=== PATIENT | female | born 1955 | race Caucasian/White ===

== ENCOUNTER 2019-08-30 08:52 | Outpatient (CLI) | payer MEDICARE, BC ==
--- NOTE | 2019-08-30 09:32 | CT ---
HEAD CT WITHOUT CONTRAST: HISTORY: AVM follow-up from 2006. Patient has a SURVEY DIRECTOR shunt. COMPARISON: None. FINDINGS: Hemorrhage: No intraparenchymal hemorrhage or extra-axial hematoma. Brain parenchyma: Encephalomalacia and gliosis in the left frontal lobe, likely due to remote insult. Multiple hyperdensities along the left frontal region compatible with glue and vascular clip.Hypoattenuation of the left frontal deep and subcortical white matter compatible with gliosis. M inimal chronic small vessel ischemic changes of the white matter. Ventricular system: Ventriculoperitoneal shunt catheter via the right parietal approach. Distal tip i s in the frontal horn of the right lateral ventricle. No evidence of hydrocephalus. Calvarium: Postsurgical changes in the left frontal calvarium. Nonspecific sclerosis involving the ri ght frontal calvarium, measuring 1.1 x 1.1 cm. [place] hole defect along the right parietal calvarium for SURVEY DIRECTOR shunt catheter. Sclerosis along the inner and outer table the left temporal calvarium. Sinuses and mastoid air cells: Adequate aeration. IMPRESSION: Iatrogenic changes as described above. No acute intracranial process. Transcribed Date/Time: 08/30/2019 9:38 AM
== END 2019-08-30 08:53 | disposition home or self-care (01) ==
LOC: SCSCT 08:52
PROVIDERS: ATTEND Physician Assistant Surgical
DX: G91.9 Hydrocephalus, unspecified (principal); Q27.30 Arteriovenous malformation, site unspecified
CPT/HCPCS: 70450

== ENCOUNTER 2021-06-21 01:25 | Inpatient (IN) | payer OTHER, MEDICARE, BC ==
[2021-06-21] MEDS ORDERED: Dextrose 50% Abboject 50 ML SYRINGE SLOW IVP PRN (01:26)
[2021-06-21] MEDS ORDERED: Ondansetron PF 4 MG/2 ML Vial IVP PRN (01:26)
[2021-06-21] MEDS ORDERED: hydrALAZINE 20 MG/ML VIAL SLOW IVP PRN (01:26)
[2021-06-21] MEDS ORDERED: Dextrose 5% in Water 1,000 ML IV PRN (01:26)
[2021-06-21] MEDS ORDERED: Ondansetron ODT 4 MG TAB PO PRN (01:26)
[2021-06-21 01:32] VITALS: BMI 34.7
[2021-06-21] MEDS ORDERED: Cyclobenzaprine 10 MG TAB PO PRN (01:33)
[2021-06-21] MEDS ORDERED: traMADol HCl 50 MG TAB PO PRN ×2 (01:33)
[2021-06-21] MEDS ORDERED: Morphine 4 MG/ML VIAL SLOW IVP PRN (02:24)
[2021-06-21] MEDS: Acetaminophen 325 MG TAB PO SCH ×4 (02:38→21:11)
[2021-06-21] MEDS: Sodium Chloride 0.9% 1,000 ML IV SCH ×2 (02:40→09:32)
[2021-06-21] MEDS: Ibuprofen 200 MG TAB PO SCH ×3 (02:55→18:25)
[2021-06-21 04:22] LABS: SARS-CoV-2 NAA Rapid Test Not Detected (NotDetected)
[2021-06-21 05:58] LABS: #Lymphocytes 1.2 thou/uL (1.20-3.40); #Monocytes 0.9 thou/uL (0.11-0.59); #Neutrophils 9.2 thou/uL (1.40-6.50); %Basophils 0.1 % (0.0-1.0); %Eosinophils 0.3 % (0.0-10.0); %Lymphocytes 10.6 % (21.0-51.0); %Monocytes 7.5 % (0.0-10.0); %Neutrophils 81.6 % (42.0-75.0); Hemoglobin 13.3 g/dL (12.0-16.0); Mean Corpuscular HGB CONC 34.6 g/dL (32.0-36.0); Mean Corpuscular Hemoglobin 31.3 pg (27.0-31.0); Mean Corpuscular Volume 90.4 fL (78.0-98.0); Mean Platelet Volume 6.4 fL (7.4-10.4); Platelet Count 360 thou/uL (130-400); Red Blood Cell (RBC) Count 4.26 mill/uL (4.20-5.40); White Blood Cell (WBC) Count 11.3 thou/uL (4.8-10.8)
[2021-06-21 06:20] LABS: Anion Gap 11 mmol/L (10-20); BUN (Urea Nitrogen) 12 mg/dL (9.8-20.1); Calc. Creatinine Clearance 112 mL/min (70-130); Calcium 9.5 mg/dL (7.8-10.44); Carbon Dioxide 30 mmol/L (23-31); Chloride 93 mmol/L (98-107); Glucose 109 mg/dL (80-115); Magnesium 1.9 mg/dL (1.6-2.6); Phosphorus 4.3 mg/dL (2.3-4.7); Potassium 4.4 mmol/L (3.5-5.1); Sodium 130 mmol/L (136-145)
[2021-06-21] MEDS ORDERED: FLU VACC QS2021-22(65YR UP)/PF 240 MCG/0.7 ML SYRINGE IM ONE (09:00)
[2021-06-21] MEDS ORDERED: Bisoprolol Fumarate/HCTZ 5 mg/6.25 mg Tablet PO SCH (09:00)
[2021-06-21] MEDS ORDERED: Lisinopril 10 MG TAB PO SCH (09:00)
[2021-06-21] MEDS ORDERED: Famotidine 20 MG TAB PO SCH (09:00)
[2021-06-21] MEDS: Lisinopril 10 MG TAB PO SCH (09:27)
[2021-06-21] MEDS ORDERED: CEFAZOLIN 2 GM in Premix Bag 1 BAG IVPB SCH (10:15)
[2021-06-21] MEDS ORDERED: CEFAZOLIN 2 GM in Sodium Chloride 0.9% 100 ML IVPB SCH (10:15)
[2021-06-21] MEDS: Bisoprolol Fumarate/HCTZ 5 mg/6.25 mg Tablet PO SCH (10:53)
[2021-06-21] MEDS ORDERED: ceFAZolin Sodium (SDC) 2 GM/100 ML BAG ONE (17:20)
[2021-06-21] MEDS ORDERED: Fentanyl 100 MCG/2 ML VIAL ONE ×2 (18:01→19:01)
[2021-06-21] MEDS ORDERED: PROPOFOL 200 MG/20 ML VIAL ONE (18:27)
[2021-06-21] MEDS ORDERED: Glycopyrrolate 0.2 MG/ML 5 ML SYRINGE ONE (18:27)
[2021-06-21] MEDS ORDERED: Dexamethasone 20 MG/5 ML VIAL ONE (18:27)
[2021-06-21] MEDS ORDERED: Ketorolac Tromethamine 30 MG/ML VIAL ONE (18:27)
[2021-06-21] MEDS ORDERED: Rocuronium Bromide 10 MG/ML (10ML VIAL) ONE (18:27)
[2021-06-21] MEDS ORDERED: Lidocaine 1% PF 5 ML VIAL ONE (18:27)
[2021-06-21] MEDS ORDERED: Ondansetron PF 4 MG/2 ML Vial ONE (18:27)
[2021-06-21] MEDS ORDERED: Ondansetron HCl/PF 4 MG/2 ML Vial IVP PRN (19:54)
[2021-06-21] MEDS ORDERED: Promethazine HCl 25 MG/ML VIAL IVPB PRN (19:54)
[2021-06-21] MEDS ORDERED: Promethazine HCl 25 MG/ML VIAL IM PRN (19:54)
[2021-06-21] MEDS ORDERED: Meperidine HCl/PF 25 MG/ML VIAL SLOW IVP PRN (19:54)
[2021-06-21] MEDS ORDERED: Fenofibrate Nanocrystallized 145 MG TAB PO SCH (21:00)
[2021-06-21] MEDS ORDERED: Non-Formulary Item 1 EACH (Fenofibrate [Lipofen] 150 MG Capsule) PO SCH (21:00)
[2021-06-21] MEDS ORDERED: Atorvastatin Calcium 10 MG TAB PO SCH (21:00)
[2021-06-22] MEDS: Acetaminophen 325 MG TAB PO SCH ×3 (02:20→16:26)
[2021-06-22] MEDS: CEFAZOLIN 2 GM in Sodium Chloride 0.9% 100 ML IVPB SCH ×2 (02:20→09:26)
[2021-06-22] MEDS: Ibuprofen 200 MG TAB PO SCH ×2 (02:21→11:37)
[2021-06-22 04:56] LABS: #Lymphocytes 0.4 thou/uL (1.20-3.40); #Monocytes 0.8 thou/uL (0.11-0.59); #Neutrophils 12.7 thou/uL (1.40-6.50); %Eosinophils 0.1 % (0.0-10.0); %Lymphocytes 3.1 % (21.0-51.0); %Monocytes 5.9 % (0.0-10.0); Hemoglobin 11.7 g/dL (12.0-16.0); Mean Corpuscular Hemoglobin 30.6 pg (27.0-31.0); Mean Corpuscular Volume 92.6 fL (78.0-98.0); Mean Platelet Volume 6.8 fL (7.4-10.4); Platelet Count 325 thou/uL (130-400); RBC Distribution Width 12.1 % (11.5-14.5); Red Blood Cell (RBC) Count 3.84 mill/uL (4.20-5.40)
[2021-06-22 05:27] LABS: Anion Gap 11 mmol/L (10-20); BUN (Urea Nitrogen) 12 mg/dL (9.8-20.1); Calc. Creatinine Clearance 111 mL/min (70-130); Calcium 8.9 mg/dL (7.8-10.44); Carbon Dioxide 27 mmol/L (23-31); Chloride 99 mmol/L (98-107); Glucose 128 mg/dL (80-115); Magnesium 1.8 mg/dL (1.6-2.6); Phosphorus 3.3 mg/dL (2.3-4.7); Potassium 4.5 mmol/L (3.5-5.1); Sodium 132 mmol/L (136-145)
[2021-06-22] MEDS ORDERED: PHOS-NAK 1 PKT PACK PO SCH (08:00)
[2021-06-22] MEDS ORDERED: Magnesium 2 GM/50 ML 2 GM in Premix Bag 1 BAG IVPB SCH (08:00)
[2021-06-22] MEDS: Lisinopril 10 MG TAB PO SCH (08:39)
[2021-06-22] MEDS: Bisoprolol Fumarate/HCTZ 5 mg/6.25 mg Tablet PO SCH (08:41)
[2021-06-22] MEDS ORDERED: Aspirin 81 mg Enteric Coated Tablet PO SCH (09:00)
[2021-06-22 16:19] VITALS: BP 119/73; TEMP 98
== END 2021-06-22 19:45 | DRG 522 ==
LOC: SJJU 01:25
PROVIDERS: ADMIT Specialist; ATTEND Surgery
PROC: 0SRR0JA Replacement of Right Hip Joint, Femoral Surface with Synthetic Substitute, Uncemented, Open Approach (ICD-10-PCS; principal; 2021-06-21)
DX: S72.111A Displaced fracture of greater trochanter of right femur, initial encounter for closed fracture (principal); E87.1 Hypo-osmolality and hyponatremia; Z20.822 Contact with and (suspected) exposure to COVID-19; E78.5 Hyperlipidemia, unspecified; E87.8 Other disorders of electrolyte and fluid balance, not elsewhere classified; I10 Essential (primary) hypertension; W01.0XXA Fall on same level from slipping, tripping and stumbling without subsequent striking against object, initial encounter; Y92.009 Unspecified place in unspecified non-institutional (private) residence as the place of occurrence of the external cause; Z88.1 Allergy status to other antibiotic agents; Z88.2 Allergy status to sulfonamides; Z79.899 Other long term (current) drug therapy; Z90.49 Acquired absence of other specified parts of digestive tract
CPT/HCPCS: 36415; 72170; 80048; 83735; 84100; 85025; C1776; J0690; J1100; J1885; J2270; J2405; J2704; J3010; J3475; J3490; J7050; U0002

== ENCOUNTER 2024-01-30 10:36 | Outpatient (CLI) | payer MEDICARE | END 2024-01-30 10:37 | disposition home or self-care (01) | LOC: SCSCT 10:36 | PROVIDERS: ATTEND Family Medicine | DX: R10.9 Unspecified abdominal pain (principal); K43.9 Ventral hernia without obstruction or gangrene; K46.9 Unspecified abdominal hernia without obstruction or gangrene; M47.9 Spondylosis, unspecified; N28.89 Other specified disorders of kidney and ureter | CPT/HCPCS: 74176 ==

== ENCOUNTER 2025-03-27 15:41 | Outpatient (CLI) | payer MEDICARE | END 2025-03-27 15:42 | disposition home or self-care (01) | LOC: SCSRAD 15:41 | PROVIDERS: ATTEND Student in an Organized Health Care Education/Training Program | DX: M79.641 Pain in right hand (principal); S62.304A Unspecified fracture of fourth metacarpal bone, right hand, initial encounter for closed fracture; Z87.81 Personal history of (healed) traumatic fracture ==

== ENCOUNTER 2025-07-16 15:02 | Inpatient (IN) | payer MEDICARE ==
[2025-07-16 17:31] LABS: #Basophils Less than 0.03 10x3/uL (0.0-0.2); #Eosinophils Less than 0.03 10x3/uL (0.0-0.7); #Monocytes 0.82 10x3/uL (0.11-0.59); #Neutrophils 9.41 10x3/uL (1.40-6.50); %Basophils 0.1 % (0.0-1.0); %Eosinophils 0.1 % (0.0-10.0); %Lymphocytes 5.1 % (21.0-51.0); %Monocytes 7.5 % (0.0-10.0); %Neutrophils 86.6 % (42.0-75.0); Hematocrit 34.2 % (36.0-47.0); Hemoglobin 11.9 g/dL (12.0-16.0); Mean Corpuscular Hemoglobin 27.9 pg (27.0-31.0); Mean Corpuscular Volume 80.1 fL (78.0-98.0); Platelet Count 351 10x3/uL (130-400); Red Blood Cell (RBC) Count 4.27 mill/uL (4.20-5.40); White Blood Cell (WBC) Count 10.87 10x3/uL (4.8-10.8)
[2025-07-16 17:49] LABS: INR-International Normal Ratio 1.4; Prothrombin Time 17.0 sec (12.0-14.7)
[2025-07-16 17:50] LABS: PTT 29.8 sec (22.9-36.1)
[2025-07-16 18:08] LABS: ALT (SGPT) 27 U/L (Less than 34); AST (SGOT) 46 U/L (11-34); Albumin 3.6 g/dL (3.1-4.5); Alkaline Phosphatase 41 U/L (40-110); Anion Gap 15 mmol/L (10-20); BUN (Urea Nitrogen) 33 mg/dL (9.8-20.1); Bilirubin, Total 1.2 mg/dL (0.3-1.2); Calc. Creatinine Clearance 0 mL/min (70-130); Calcium 9.5 mg/dL (7.8-10.44); Carbon Dioxide 24 mmol/L (23-31); Chloride 79 mmol/L (98-107); Globulin 2.5 g/dL (2.4-3.5); Glucose 117 mg/dL (80-115); Potassium 4.6 mmol/L (3.5-5.1); Sodium 113 mmol/L (136-145)
[2025-07-16] MEDS ORDERED: Furosemide 40 MG (4 mL) VIAL ONE (18:38)
[2025-07-16 19:32] LABS: Osmolality, Serum 242 mOsm/kg (280-301)
[2025-07-16] MEDS ORDERED: Calcium Carbonate 500 MG ChewTAB PO PRN (19:35)
[2025-07-16] MEDS ORDERED: Guaifenesin DM 100-10/5 ML UDCUP PO PRN (19:35)
[2025-07-16 20:46] LABS: Bacteria/HPF 4+ HPF (None Seen); CAUTI Indications for Culture Alt mental st,lethar; Glucose, Urine (Dipstick) Normal (Negative); Leukocyte 500 Leu/uL (Negative); Protein, Urine (Dipstick) 10 mg/dL (Neg-Trace); RBC/HPF 0-3 HPF (0-3); Specific Gravity, Urine 1.015 (1.002-1.036)
[2025-07-16 20:59] LABS: Osmolality, Urine 426 mOsm/kg (50-1200)
[2025-07-16 21:09] LABS: Urine Culture Reflex No No
[2025-07-16 21:21] VITALS: BMI 36.7
[2025-07-16 21:45] LABS: Sodium, Urine 37.0 mmol/L (Not Available)
[2025-07-16] MEDS: cefTRIAXone\\ROCEPHIN 1 GM in Sodium Chloride 0.9% 100 ML IVPB SCH (21:54)
[2025-07-16] MEDS: Aspirin 81 mg Enteric Coated Tablet PO SCH (21:54)
[2025-07-16 22:59] LABS: Sodium 112 mmol/L (136-145)
[2025-07-17 00:11] LABS: Actual Bicarbonate (HCO3v) 21.0 mEq/L (22-28); Base Excess -1.7 mEq/L (-2.0 to +3.0); Calcium, Ionized (venous) 1.03 mmol/L (1.16-1.32); Chloride (VBG) 79 mmol/L (98-106); Hematocrit-VBG 40 % (36.0-47.0); Hemoglobin (Hb) 13.5 g/dL (11.7-16.1); Potassium (VBG) 4.46 mmol/L (3.70-5.30)
[2025-07-17 00:14] LABS: Sodium 111 mmol/L (133-146)
[2025-07-17 04:55] LABS: #Basophils Less than 0.03 10x3/uL (0.0-0.2); #Eosinophils Less than 0.03 10x3/uL (0.0-0.7); #Monocytes 1.26 10x3/uL (0.11-0.59); #Neutrophils 9.16 10x3/uL (1.40-6.50); %Basophils 0.1 % (0.0-1.0); %Eosinophils 0.0 % (0.0-10.0); %Lymphocytes 5.2 % (21.0-51.0); %Monocytes 11.4 % (0.0-10.0); %Neutrophils 82.8 % (42.0-75.0); Hematocrit 33.4 % (36.0-47.0); Hemoglobin 11.9 g/dL (12.0-16.0); Mean Corpuscular Hemoglobin 28.1 pg (27.0-31.0); Mean Corpuscular Volume 79.0 fL (78.0-98.0); Platelet Count 348 10x3/uL (130-400); Red Blood Cell (RBC) Count 4.23 mill/uL (4.20-5.40); White Blood Cell (WBC) Count 11.05 10x3/uL (4.8-10.8)
[2025-07-17] MEDS: Furosemide 40 MG (4 mL) VIAL SLOW IVP SCH (05:14)
[2025-07-17 05:27] LABS: Anion Gap 15 mmol/L (10-20); BUN (Urea Nitrogen) 34 mg/dL (9.8-20.1); Calc. Creatinine Clearance 62 mL/min (70-130); Carbon Dioxide 22 mmol/L (23-31); Chloride 79 mmol/L (98-107); Potassium 4.0 mmol/L (3.5-5.1); Sodium 112 mmol/L (136-145)
[2025-07-17 05:28] LABS: Calcium 9.3 mg/dL (7.8-10.44); Glucose 106 mg/dL (80-115)
[2025-07-17] MEDS: Sodium Chloride 256 MEQ in Sterile Water 936 ML IV SCH (08:13)
[2025-07-17 08:17] LABS: Actual Bicarbonate (HCO3a) 22.8 mEq/L (22-28); Base Excess (BEa) -2.3 mEq/L (-2.0 to +3.0); CO2 Tension 40.3 mmHg (35.0-45.0); Calcium, Ionized (arterial) 1.12 mmol/L (1.12-1.30); Hematocrit-ABG 39 % (36.0-47.0); Hemoglobin (Hb) 13.3 g/dL (12.0-16.0); O2 Tension (PaO2), arterial 95.0 mmHg (> 80.0); Potassium - ABG Lab 3.77 mmol/L (3.70-5.30); pH, Arterial 7.370 (7.35-7.45)
[2025-07-17 08:18] LABS: Puncture Site Right Radial artery
[2025-07-17 08:39] LABS: Sodium 114 mmol/L (136-145)
[2025-07-17] MEDS ORDERED: Bisoprolol Fumarate/HCTZ 5 mg/6.25 mg Tablet PO SCH (09:00)
[2025-07-17] MEDS: Mupirocin 1 GM TUBE NASAL DECOLONIZATION NASAL SCH (10:01)
[2025-07-17] MEDS: Enoxaparin 40 MG (0.4 mL) SYRINGE SC SCH (10:03)
[2025-07-17] MEDS: Lisinopril 10 MG TAB PO SCH (10:06)
[2025-07-17] MEDS: Pantoprazole 40 MG DR.TAB PO SCH (10:07)
[2025-07-17 12:40] LABS: Sodium 116 mmol/L (136-145)
[2025-07-17 17:04] LABS: Sodium 114 mmol/L (136-145)
[2025-07-17 22:00] LABS: #Basophils Less than 0.03 10x3/uL (0.0-0.2); #Eosinophils Less than 0.03 10x3/uL (0.0-0.7); #Monocytes 1.08 10x3/uL (0.11-0.59); #Neutrophils 9.27 10x3/uL (1.40-6.50); %Basophils 0.1 % (0.0-1.0); %Eosinophils 0.2 % (0.0-10.0); %Lymphocytes 3.8 % (21.0-51.0); %Monocytes 10.0 % (0.0-10.0); %Neutrophils 85.3 % (42.0-75.0); Hematocrit 35.4 % (36.0-47.0); Hemoglobin 12.4 g/dL (12.0-16.0); Mean Corpuscular Hemoglobin 28.1 pg (27.0-31.0); Mean Corpuscular Volume 80.3 fL (78.0-98.0); Platelet Count 335 10x3/uL (130-400); Red Blood Cell (RBC) Count 4.41 mill/uL (4.20-5.40); White Blood Cell (WBC) Count 10.85 10x3/uL (4.8-10.8)
[2025-07-17 22:21] LABS: Anion Gap 16 mmol/L (10-20); BUN (Urea Nitrogen) 30 mg/dL (9.8-20.1); Calc. Creatinine Clearance 74 mL/min (70-130); Calcium 9.2 mg/dL (7.8-10.44); Carbon Dioxide 27 mmol/L (23-31); Chloride 78 mmol/L (98-107); Glucose 89 mg/dL (80-115); Potassium 3.5 mmol/L (3.5-5.1); Sodium 117 mmol/L (136-145)
[2025-07-18 01:44] LABS: Anion Gap 14 mmol/L (10-20); BUN (Urea Nitrogen) 32 mg/dL (9.8-20.1); Calc. Creatinine Clearance 72 mL/min (70-130); Calcium 9.0 mg/dL (7.8-10.44); Carbon Dioxide 30 mmol/L (23-31); Chloride 79 mmol/L (98-107); Glucose 89 mg/dL (80-115); Potassium 3.1 mmol/L (3.5-5.1); Sodium 120 mmol/L (136-145)
[2025-07-18] MEDS: Potassium Chloride 20 MEQ in Premix 1 BAG IVPB SCH (04:10)
[2025-07-18 04:41] LABS: #Basophils Less than 0.03 10x3/uL (0.0-0.2); #Eosinophils Less than 0.03 10x3/uL (0.0-0.7); #Monocytes 1.44 10x3/uL (0.11-0.59); #Neutrophils 7.64 10x3/uL (1.40-6.50); %Basophils 0.1 % (0.0-1.0); %Eosinophils 0.1 % (0.0-10.0); %Lymphocytes 7.6 % (21.0-51.0); %Monocytes 14.6 % (0.0-10.0); %Neutrophils 77.3 % (42.0-75.0); Hematocrit 36.0 % (36.0-47.0); Hemoglobin 12.0 g/dL (12.0-16.0); Mean Corpuscular Hemoglobin 27.6 pg (27.0-31.0); Mean Corpuscular Volume 82.8 fL (78.0-98.0); Platelet Count 317 10x3/uL (130-400); Red Blood Cell (RBC) Count 4.35 mill/uL (4.20-5.40); White Blood Cell (WBC) Count 9.88 10x3/uL (4.8-10.8)
[2025-07-18 05:20] LABS: ALT (SGPT) 39 U/L (Less than 34); AST (SGOT) 73 U/L (11-34); Albumin 3.3 g/dL (3.1-4.5); Alkaline Phosphatase 39 U/L (40-110); Anion Gap 16 mmol/L (10-20); BUN (Urea Nitrogen) 32 mg/dL (9.8-20.1); Bilirubin, Total 0.8 mg/dL (0.3-1.2); Calc. Creatinine Clearance 70 mL/min (70-130); Calcium 9.2 mg/dL (7.8-10.44); Carbon Dioxide 29 mmol/L (23-31); Chloride 79 mmol/L (98-107); Globulin 2.6 g/dL (2.4-3.5); Glucose 77 mg/dL (80-115); Potassium 2.9 mmol/L (3.5-5.1); Sodium 121 mmol/L (136-145)
[2025-07-18] MEDS ORDERED: Magnesium 2 GM/50 ML(in water) 2 GM in Premix 1 BAG IVPB PRN (09:45)
[2025-07-18] MEDS ORDERED: PHOS-NAK 1 PKT PACK PO PRN (09:45)
[2025-07-18] MEDS ORDERED: Potassium Chloride 20 MEQ in Premix 1 BAG IVPB PRN (09:45)
[2025-07-18 10:17] LABS: Anion Gap 18 mmol/L (10-20); BUN (Urea Nitrogen) 30 mg/dL (9.8-20.1); Calc. Creatinine Clearance 74 mL/min (70-130); Calcium 9.4 mg/dL (7.8-10.44); Carbon Dioxide 29 mmol/L (23-31); Chloride 81 mmol/L (98-107); Glucose 85 mg/dL (80-115); Potassium 3.9 mmol/L (3.5-5.1); Sodium 124 mmol/L (136-145)
[2025-07-18] MEDS: Sodium Chloride 256 MEQ in Sterile Water 936 ML IV SCH (10:42)
[2025-07-18] MEDS: Senokot S 8.6-50 MG TAB PO SCH (10:46)
[2025-07-18 13:22] LABS: Potassium 3.0 mmol/L (3.5-5.1)
[2025-07-18] MEDS: Furosemide 40 MG (4 mL) VIAL SLOW IVP SCH (13:50)
[2025-07-18 14:12] LABS: Anion Gap 14 mmol/L (10-20); BUN (Urea Nitrogen) 32 mg/dL (9.8-20.1); Calc. Creatinine Clearance 78 mL/min (70-130); Calcium 9.5 mg/dL (7.8-10.44); Carbon Dioxide 33 mmol/L (23-31); Chloride 81 mmol/L (98-107); Glucose 118 mg/dL (80-115); Sodium 125 mmol/L (136-145)
[2025-07-18 17:32] LABS: Anion Gap 17 mmol/L (10-20); BUN (Urea Nitrogen) 32 mg/dL (9.8-20.1); Calc. Creatinine Clearance 72 mL/min (70-130); Calcium 9.3 mg/dL (7.8-10.44); Carbon Dioxide 31 mmol/L (23-31); Chloride 82 mmol/L (98-107); Glucose 134 mg/dL (80-115); Potassium 3.6 mmol/L (3.5-5.1); Sodium 126 mmol/L (136-145)
[2025-07-18 21:18] LABS: Anion Gap 11 mmol/L (10-20); BUN (Urea Nitrogen) 35 mg/dL (9.8-20.1); Calc. Creatinine Clearance 69 mL/min (70-130); Calcium 9.1 mg/dL (7.8-10.44); Carbon Dioxide 34 mmol/L (23-31); Chloride 85 mmol/L (98-107); Glucose 123 mg/dL (80-115); Potassium 3.5 mmol/L (3.5-5.1); Sodium 126 mmol/L (136-145)
[2025-07-19 04:22] LABS: #Basophils Less than 0.03 10x3/uL (0.0-0.2); #Eosinophils 0.03 10x3/uL (0.0-0.7); #Monocytes 1.35 10x3/uL (0.11-0.59); #Neutrophils 7.17 10x3/uL (1.40-6.50); %Basophils 0.2 % (0.0-1.0); %Eosinophils 0.3 % (0.0-10.0); %Lymphocytes 8.5 % (21.0-51.0); %Monocytes 14.3 % (0.0-10.0); %Neutrophils 76.2 % (42.0-75.0); Hematocrit 37.2 % (36.0-47.0); Hemoglobin 12.1 g/dL (12.0-16.0); Mean Corpuscular Hemoglobin 27.3 pg (27.0-31.0); Mean Corpuscular Volume 84.0 fL (78.0-98.0); Platelet Count 348 10x3/uL (130-400); Red Blood Cell (RBC) Count 4.43 mill/uL (4.20-5.40); White Blood Cell (WBC) Count 9.42 10x3/uL (4.8-10.8)
[2025-07-19] MEDS: Aspirin 81 mg Enteric Coated Tablet PO SCH (09:15)
[2025-07-19 10:21] LABS: Anion Gap 12 mmol/L (10-20); BUN (Urea Nitrogen) 36 mg/dL (9.8-20.1); Calc. Creatinine Clearance 75 mL/min (70-130); Calcium 9.5 mg/dL (7.8-10.44); Carbon Dioxide 34 mmol/L (23-31); Chloride 87 mmol/L (98-107); Glucose 136 mg/dL (80-115); Potassium 3.3 mmol/L (3.5-5.1); Sodium 130 mmol/L (136-145)
[2025-07-19] MEDS: Carvedilol 3.125 MG TAB PO SCH ×2 (13:16→17:17)
[2025-07-19] MEDS: Furosemide 20 MG (2 mL) VIAL SLOW IVP SCH (14:13)
[2025-07-19] MEDS ORDERED: PHOS-NAK 1 PKT PACK PO PRN (16:00)
[2025-07-19] MEDS ORDERED: Magnesium Sulfate In Water 4 GM in Premix 1 BAG IVPB PRN (16:00)
[2025-07-19] MEDS ORDERED: Potassium Chloride 20 MEQ in Premix 1 BAG IVPB PRN (16:00)
[2025-07-19] MEDS: Acetaminophen 325 MG TAB PO PRN (16:16)
[2025-07-19 20:18] LABS: Potassium 4.4 mmol/L (3.5-5.1)
[2025-07-19] MEDS: HYDROcodone/Acetaminophen 5/325 mg Tablet PO PRN (21:44)
[2025-07-19] MEDS: Cyclobenzaprine 10 MG TAB PO PRN (21:45)
[2025-07-20 04:52] LABS: Anion Gap 11 mmol/L (10-20); BUN (Urea Nitrogen) 32 mg/dL (9.8-20.1); Calc. Creatinine Clearance 85 mL/min (70-130); Calcium 9.3 mg/dL (7.8-10.44); Carbon Dioxide 32 mmol/L (23-31); Chloride 90 mmol/L (98-107); Glucose 113 mg/dL (80-115); Potassium 4.2 mmol/L (3.5-5.1); Sodium 129 mmol/L (136-145)
[2025-07-20] MEDS: FLU (Fluad Triv) 25-26 (65UP)PF 45 MCG/0.5 ML Syringe IM ONE (13:01)
[2025-07-21 05:34] LABS: Anion Gap 12 mmol/L (10-20); BUN (Urea Nitrogen) 27 mg/dL (9.8-20.1); Calc. Creatinine Clearance 83 mL/min (70-130); Calcium 9.7 mg/dL (7.8-10.44); Carbon Dioxide 32 mmol/L (23-31); Chloride 91 mmol/L (98-107); Glucose 118 mg/dL (80-115); Potassium 3.9 mmol/L (3.5-5.1); Sodium 131 mmol/L (136-145)
[2025-07-21] MEDS: Carvedilol 3.125 MG TAB PO SCH (13:22)
[2025-07-21] MEDS: Metoprolol Tartrate 5 MG (5 mL) VIAL IVP SCH (17:16)
[2025-07-21] MEDS: Carvedilol 6.25 MG TAB PO SCH (17:16)
[2025-07-22 05:55] LABS: Hematocrit 42.2 % (36.0-47.0); Hemoglobin 13.9 g/dL (12.0-16.0); Mean Corpuscular Hemoglobin 27.7 pg (27.0-31.0); Mean Corpuscular Volume 84.2 fL (78.0-98.0); Platelet Count 351 10x3/uL (130-400); Red Blood Cell (RBC) Count 5.01 mill/uL (4.20-5.40); White Blood Cell (WBC) Count 14.08 10x3/uL (4.8-10.8)
[2025-07-22 06:10] LABS: Anion Gap 15 mmol/L (10-20); BUN (Urea Nitrogen) 24 mg/dL (9.8-20.1); Calc. Creatinine Clearance 93 mL/min (70-130); Calcium 9.9 mg/dL (7.8-10.44); Carbon Dioxide 28 mmol/L (23-31); Chloride 91 mmol/L (98-107); Glucose 117 mg/dL (80-115); Potassium 4.1 mmol/L (3.5-5.1); Sodium 130 mmol/L (136-145)
[2025-07-22 13:04] LABS: #Basophils 0.05 10x3/uL (0.0-0.2); #Eosinophils 0.04 10x3/uL (0.0-0.7); #Monocytes 2.10 10x3/uL (0.11-0.59); #Neutrophils 11.88 10x3/uL (1.40-6.50); %Basophils 0.3 % (0.0-1.0); %Eosinophils 0.3 % (0.0-10.0); %Lymphocytes 8.8 % (21.0-51.0); %Monocytes 13.5 % (0.0-10.0); %Neutrophils 76.7 % (42.0-75.0); Hematocrit 43.7 % (36.0-47.0); Hemoglobin 14.1 g/dL (12.0-16.0); Mean Corpuscular Hemoglobin 27.7 pg (27.0-31.0); Mean Corpuscular Volume 85.9 fL (78.0-98.0); Platelet Count 405 10x3/uL (130-400); Red Blood Cell (RBC) Count 5.09 mill/uL (4.20-5.40); White Blood Cell (WBC) Count 15.50 10x3/uL (4.8-10.8)
[2025-07-23 04:44] LABS: #Basophils 0.05 10x3/uL (0.0-0.2); #Eosinophils 0.05 10x3/uL (0.0-0.7); #Monocytes 2.55 10x3/uL (0.11-0.59); #Neutrophils 12.73 10x3/uL (1.40-6.50); %Basophils 0.3 % (0.0-1.0); %Eosinophils 0.3 % (0.0-10.0); %Lymphocytes 10.2 % (21.0-51.0); %Monocytes 14.8 % (0.0-10.0); %Neutrophils 73.8 % (42.0-75.0); Hematocrit 43.7 % (36.0-47.0); Hemoglobin 13.9 g/dL (12.0-16.0); Mean Corpuscular Hemoglobin 27.5 pg (27.0-31.0); Mean Corpuscular Volume 86.4 fL (78.0-98.0); Platelet Count 295 10x3/uL (130-400); Red Blood Cell (RBC) Count 5.06 mill/uL (4.20-5.40); White Blood Cell (WBC) Count 17.24 10x3/uL (4.8-10.8)
[2025-07-23 04:46] LABS: Anion Gap 16 mmol/L (10-20); BUN (Urea Nitrogen) 27 mg/dL (9.8-20.1); Calc. Creatinine Clearance 83 mL/min (70-130); Calcium 9.9 mg/dL (7.8-10.44); Carbon Dioxide 27 mmol/L (23-31); Chloride 90 mmol/L (98-107); Glucose 111 mg/dL (80-115); Potassium 4.1 mmol/L (3.5-5.1); Sodium 129 mmol/L (136-145)
[2025-07-23] MEDS: Carvedilol 6.25 MG TAB PO SCH (11:20)
[2025-07-23] MEDS: Amiodarone 200 MG TAB PO SCH (11:31)
[2025-07-23] MEDS: Digoxin 0.5 MG/2 ML AMP SLOW IVP SCH (11:32)
[2025-07-23] MEDS: Enoxaparin 100 MG (1 mL) SYRINGE SC SCH (11:32)
[2025-07-23] MEDS ORDERED: Iopamidol 370 76% 100 ML VIAL ONE (12:00)
[2025-07-23] MEDS: Furosemide 20 MG TAB PO SCH (14:05)
[2025-07-23 16:16] LABS: Bacteria/HPF 1+ HPF (None Seen); CAUTI Indications for Culture Dysuria,urgency,freq; Glucose, Urine (Dipstick) Normal (Negative); Leukocyte 25 Leu/uL (Negative); Protein, Urine (Dipstick) Negative (Neg-Trace); RBC/HPF 0-3 HPF (0-3); Specific Gravity, Urine 1.014 (1.002-1.036); Yeast-Budding 1+ HPF (None Seen)
[2025-07-23 16:18] LABS: Urine Culture Reflex No No
[2025-07-24 04:36] LABS: #Basophils 0.03 10x3/uL (0.0-0.2); #Eosinophils 0.10 10x3/uL (0.0-0.7); #Monocytes 1.35 10x3/uL (0.11-0.59); #Neutrophils 8.09 10x3/uL (1.40-6.50); %Basophils 0.3 % (0.0-1.0); %Eosinophils 0.9 % (0.0-10.0); %Lymphocytes 10.7 % (21.0-51.0); %Monocytes 12.5 % (0.0-10.0); %Neutrophils 75.0 % (42.0-75.0); Hematocrit 39.2 % (36.0-47.0); Hemoglobin 12.5 g/dL (12.0-16.0); Mean Corpuscular Hemoglobin 27.5 pg (27.0-31.0); Mean Corpuscular Volume 86.2 fL (78.0-98.0); Platelet Count 313 10x3/uL (130-400); Red Blood Cell (RBC) Count 4.55 mill/uL (4.20-5.40); White Blood Cell (WBC) Count 10.78 10x3/uL (4.8-10.8)
[2025-07-24 04:44] LABS: Anion Gap 11 mmol/L (10-20); BUN (Urea Nitrogen) 35 mg/dL (9.8-20.1); Calc. Creatinine Clearance 71 mL/min (70-130); Calcium 9.6 mg/dL (7.8-10.44); Carbon Dioxide 29 mmol/L (23-31); Chloride 93 mmol/L (98-107); Glucose 101 mg/dL (80-115); Potassium 4.1 mmol/L (3.5-5.1); Sodium 129 mmol/L (136-145)
[2025-07-25 04:58] LABS: Anion Gap 9 mmol/L (10-20); BUN (Urea Nitrogen) 41 mg/dL (9.8-20.1); Calc. Creatinine Clearance 63 mL/min (70-130); Calcium 9.5 mg/dL (7.8-10.44); Carbon Dioxide 25 mmol/L (23-31); Chloride 96 mmol/L (98-107); Glucose 97 mg/dL (80-115); Potassium 4.3 mmol/L (3.5-5.1); Sodium 126 mmol/L (136-145)
[2025-07-25 05:30] LABS: #Basophils 0.03 10x3/uL (0.0-0.2); #Eosinophils 0.09 10x3/uL (0.0-0.7); #Monocytes 1.04 10x3/uL (0.11-0.59); #Neutrophils 5.48 10x3/uL (1.40-6.50); %Basophils 0.4 % (0.0-1.0); %Eosinophils 1.1 % (0.0-10.0); %Lymphocytes 15.7 % (21.0-51.0); %Monocytes 13.1 % (0.0-10.0); %Neutrophils 69.3 % (42.0-75.0); Hematocrit 39.7 % (36.0-47.0); Hemoglobin 12.5 g/dL (12.0-16.0); Mean Corpuscular Hemoglobin 27.1 pg (27.0-31.0); Mean Corpuscular Volume 85.9 fL (78.0-98.0); Platelet Count 363 10x3/uL (130-400); Red Blood Cell (RBC) Count 4.62 mill/uL (4.20-5.40); White Blood Cell (WBC) Count 7.91 10x3/uL (4.8-10.8)
[2025-07-25] MEDS: Sodium Chloride 256 MEQ in Sterile Water 936 ML IV SCH ×2 (10:33→18:26)
[2025-07-25 14:24] LABS: Anion Gap 9 mmol/L (10-20); BUN (Urea Nitrogen) 35 mg/dL (9.8-20.1); Calc. Creatinine Clearance 76 mL/min (70-130); Calcium 9.5 mg/dL (7.8-10.44); Carbon Dioxide 26 mmol/L (23-31); Chloride 101 mmol/L (98-107); Glucose 117 mg/dL (80-115); Potassium 4.5 mmol/L (3.5-5.1); Sodium 131 mmol/L (136-145)
[2025-07-25 21:08] LABS: Anion Gap 9 mmol/L (10-20); BUN (Urea Nitrogen) 36 mg/dL (9.8-20.1); Calc. Creatinine Clearance 75 mL/min (70-130); Calcium 9.3 mg/dL (7.8-10.44); Carbon Dioxide 25 mmol/L (23-31); Chloride 104 mmol/L (98-107); Glucose 136 mg/dL (80-115); Potassium 4.3 mmol/L (3.5-5.1); Sodium 134 mmol/L (136-145)
[2025-07-26 06:04] LABS: Anion Gap 9 mmol/L (10-20); BUN (Urea Nitrogen) 31 mg/dL (9.8-20.1); Calc. Creatinine Clearance 85 mL/min (70-130); Calcium 9.3 mg/dL (7.8-10.44); Carbon Dioxide 26 mmol/L (23-31); Chloride 103 mmol/L (98-107); Glucose 93 mg/dL (80-115); Potassium 4.0 mmol/L (3.5-5.1); Sodium 134 mmol/L (136-145)
[2025-07-27 04:56] LABS: #Basophils Less than 0.03 10x3/uL (0.0-0.2); #Eosinophils 0.08 10x3/uL (0.0-0.7); #Monocytes 0.79 10x3/uL (0.11-0.59); #Neutrophils 2.90 10x3/uL (1.40-6.50); %Basophils 0.4 % (0.0-1.0); %Eosinophils 1.6 % (0.0-10.0); %Lymphocytes 24.4 % (21.0-51.0); %Monocytes 15.7 % (0.0-10.0); %Neutrophils 57.5 % (42.0-75.0); Hematocrit 34.5 % (36.0-47.0); Hemoglobin 11.4 g/dL (12.0-16.0); Mean Corpuscular Hemoglobin 28.1 pg (27.0-31.0); Mean Corpuscular Volume 85.0 fL (78.0-98.0); Platelet Count 402 10x3/uL (130-400); Red Blood Cell (RBC) Count 4.06 mill/uL (4.20-5.40); White Blood Cell (WBC) Count 5.04 10x3/uL (4.8-10.8)
[2025-07-27 05:34] LABS: Anion Gap 13 mmol/L (10-20); BUN (Urea Nitrogen) 26 mg/dL (9.8-20.1); Calc. Creatinine Clearance 79 mL/min (70-130); Calcium 9.0 mg/dL (7.8-10.44); Carbon Dioxide 23 mmol/L (23-31); Chloride 105 mmol/L (98-107); Glucose 96 mg/dL (80-115); Potassium 4.7 mmol/L (3.5-5.1); Sodium 136 mmol/L (136-145)
[2025-07-27] MEDS: Apixaban 5 MG TAB PO SCH (21:31)
[2025-07-28 07:15] LABS: Anion Gap 12 mmol/L (10-20); BUN (Urea Nitrogen) 22 mg/dL (9.8-20.1); Calc. Creatinine Clearance 82 mL/min (70-130); Calcium 9.2 mg/dL (7.8-10.44); Carbon Dioxide 24 mmol/L (23-31); Chloride 103 mmol/L (98-107); Glucose 91 mg/dL (80-115); Potassium 4.3 mmol/L (3.5-5.1); Sodium 135 mmol/L (136-145)
[2025-07-28] MEDS: Sacubitril 24MG/Valsartan 26 MG TAB PO SCH (20:29)
[2025-07-29 06:50] LABS: #Basophils Less than 0.03 10x3/uL (0.0-0.2); #Eosinophils 0.08 10x3/uL (0.0-0.7); #Monocytes 0.59 10x3/uL (0.11-0.59); #Neutrophils 4.19 10x3/uL (1.40-6.50); %Basophils 0.3 % (0.0-1.0); %Eosinophils 1.3 % (0.0-10.0); %Lymphocytes 18.1 % (21.0-51.0); %Monocytes 9.9 % (0.0-10.0); %Neutrophils 70.1 % (42.0-75.0); Hematocrit 41.1 % (36.0-47.0); Hemoglobin 13.7 g/dL (12.0-16.0); Mean Corpuscular Hemoglobin 28.0 pg (27.0-31.0); Mean Corpuscular Volume 83.9 fL (78.0-98.0); Platelet Count 404 10x3/uL (130-400); Red Blood Cell (RBC) Count 4.90 mill/uL (4.20-5.40); White Blood Cell (WBC) Count 5.98 10x3/uL (4.8-10.8)
[2025-07-29 07:03] LABS: Anion Gap 16 mmol/L (10-20); BUN (Urea Nitrogen) 23 mg/dL (9.8-20.1); Calc. Creatinine Clearance 110 mL/min (70-130); Calcium 9.4 mg/dL (7.8-10.44); Carbon Dioxide 21 mmol/L (23-31); Chloride 104 mmol/L (98-107); Glucose 91 mg/dL (80-115); Potassium 4.9 mmol/L (3.5-5.1); Sodium 136 mmol/L (136-145)
[2025-07-30 16:31] LABS: Bacteria/HPF 2+ HPF (None Seen); CAUTI Indications for Culture Pelvic or flank pain; Glucose, Urine (Dipstick) Greater than 1000 mg/dL (Negative); Leukocyte 500 Leu/uL (Negative); Protein, Urine (Dipstick) Negative (Neg-Trace); RBC/HPF Greater than 50 HPF (0-3); Specific Gravity, Urine 1.022 (1.002-1.036); WBC/HPF Greater than 50 HPF (0-3)
[2025-07-30 16:39] LABS: Urine Culture Reflex Yes Yes
[2025-07-30 16:41] LABS: Yeast-Budding 1+ HPF (None Seen)
[2025-07-31 06:19] LABS: #Basophils 0.04 10x3/uL (0.0-0.2); #Eosinophils 0.10 10x3/uL (0.0-0.7); #Monocytes 0.70 10x3/uL (0.11-0.59); #Neutrophils 5.61 10x3/uL (1.40-6.50); %Basophils 0.5 % (0.0-1.0); %Eosinophils 1.3 % (0.0-10.0); %Lymphocytes 16.1 % (21.0-51.0); %Monocytes 9.1 % (0.0-10.0); %Neutrophils 72.6 % (42.0-75.0); Hematocrit 40.0 % (36.0-47.0); Hemoglobin 12.6 g/dL (12.0-16.0); Mean Corpuscular Hemoglobin 27.1 pg (27.0-31.0); Mean Corpuscular Volume 86.0 fL (78.0-98.0); Platelet Count 486 10x3/uL (130-400); Red Blood Cell (RBC) Count 4.65 mill/uL (4.20-5.40); White Blood Cell (WBC) Count 7.72 10x3/uL (4.8-10.8)
[2025-07-31 06:43] LABS: Anion Gap 10 mmol/L (10-20); BUN (Urea Nitrogen) 27 mg/dL (9.8-20.1); Calc. Creatinine Clearance 77 mL/min (70-130); Calcium 9.7 mg/dL (7.8-10.44); Carbon Dioxide 25 mmol/L (23-31); Chloride 106 mmol/L (98-107); Glucose 100 mg/dL (80-115); Potassium 4.4 mmol/L (3.5-5.1); Sodium 137 mmol/L (136-145)
[2025-07-31] MEDS: Apixaban 5 MG TAB PO SCH (20:22)
[2025-08-01 14:12] VITALS: BMI 33.4
[2025-08-01 15:53] VITALS: BP 123/83; TEMP 97.8
== END 2025-08-01 18:01 | disposition home health service (06) | DRG 640 ==
LOC: ERS 15:02 → CCU 18:55 → 2NO 07-18 17:57 → SURG B 07-27 17:14
PROVIDERS: ADMIT Internal Medicine; ATTEND Internal Medicine
PROC: 3E03329 Introduction of Other Anti-infective into Peripheral Vein, Percutaneous Approach (ICD-10-PCS; 2025-07-16)
PROC: 4A133R1 Monitoring of Arterial Saturation, Peripheral, Percutaneous Approach (ICD-10-PCS; 2025-07-16)
PROC: XX20X89 Monitoring of Brain Electrical Activity, Computer-aided Detection and Notification, New Technology Group 9 (ICD-10-PCS; principal; 2025-07-17)
DX: E87.1 Hypo-osmolality and hyponatremia (principal); G93.41 Metabolic encephalopathy; I50.23 Acute on chronic systolic (congestive) heart failure; S32.049A Unspecified fracture of fourth lumbar vertebra, initial encounter for closed fracture; N17.9 Acute kidney failure, unspecified; N39.0 Urinary tract infection, site not specified; I48.92 Unspecified atrial flutter; E78.00 Pure hypercholesterolemia, unspecified; I11.0 Hypertensive heart disease with heart failure; F41.9 Anxiety disorder, unspecified; I07.1 Rheumatic tricuspid insufficiency; F32.A Depression, unspecified; E87.8 Other disorders of electrolyte and fluid balance, not elsewhere classified; D72.829 Elevated white blood cell count, unspecified; E11.9 Type 2 diabetes mellitus without complications; I49.9 Cardiac arrhythmia, unspecified; G47.33 Obstructive sleep apnea (adult) (pediatric); K21.9 Gastro-esophageal reflux disease without esophagitis; E78.5 Hyperlipidemia, unspecified; I48.0 Paroxysmal atrial fibrillation; Z79.899 Other long term (current) drug therapy; Z98.890 Other specified postprocedural states; Z87.442 Personal history of urinary calculi; Z90.49 Acquired absence of other specified parts of digestive tract; Z88.2 Allergy status to sulfonamides; Z88.1 Allergy status to other antibiotic agents; Z79.82 Long term (current) use of aspirin; Z79.890 Hormone replacement therapy; Z82.49 Family history of ischemic heart disease and other diseases of the circulatory system
CPT/HCPCS: 36415; 36416; 36600; 70450; 71045; 72125; 72131; 74177; 75809; 80048; 80053; 81001; 82340; 82533; 82570; 82805; 83605; 83880; 83930; 83935; 84145; 84295; 84300; 84443; 84484; 84550; 85025; 85027; 85610; 85730; 87077; 87086; 87186; 93005; 93306; 94760; 95812; 95813; 95816; 96374; 96375; A4217; J0282; J0696; J1160; J1650; J1940; J3010; J3480; J7070; Q9967